=== PATIENT | male | born 1980 | race Caucasian/White ===

== ENCOUNTER 2022-03-22 16:01 | Emergency (ER) | payer OTHER, SELFPAY ==
[2022-03-22] VITALS (7 sets, daily range): BP systolic 131–161; BP diastolic 85–100; PULSE 64–88; RESP 14; TEMP 36.7; O2SAT 98–99
--- NOTE | 2022-03-22 16:19 | XRR_ITS ---
PROCEDURE INFORMATION: Exam: XR Chest Exam date and time: 03/22/2022 4:47 PM Age: 42 years old Clinical indication: Other: Chest pain TECHNIQUE: Imaging protocol: Radiologic exam of the chest. Views: 1 view. COMPARISON: CT Cervical Spine wo* [id number] 05/24/2016 4:17 PM FINDINGS: Lungs: Unremarkable. No consolidation. Pleural spaces: Unremarkable. No pleural effusion. No pneumothorax. Heart/Mediastinum: Unremarkable. No cardiomegaly. Bones/joints: Unremarkable. XR/XR chest 1V portable [id number] IMPRESSION: No acute findings.
--- NOTE | 2022-03-22 16:44 | CTR_ITS ---
PROCEDURE INFORMATION: Exam: CT Head Without Contrast Exam date and time: 03/22/2022 5:52 PM Age: 42 years old Clinical indication: Pain; Dizziness; Headache TECHNIQUE: Imaging protocol: Computed tomography of the head without contrast. Radiation optimization: All CT scans at this facility use at least one of these dose optimization techniques: automated exposure control; mA and/or kV adjustment per patient size (includes targeted exams where dose is matched to clinical indication); or iterative reconstruction. COMPARISON: CT head wo con* [id number] 05/24/2016 4:13 PM RADIATION DOSE METRICS: Total DLP (mGy-cm): 1004.98 FINDINGS: Brain: Normal. No hemorrhage. Unremarkable white matter. No mass effect. Cerebral ventricles: No ventriculomegaly. Paranasal sinuses: Visualized sinuses are unremarkable. No fluid levels. Mastoid air cells: Visualized mastoid air cells are well aerated. Bones/joints: Unremarkable. No acute fracture. Soft tissues: Unremarkable. CT/CT head wo con* [id number] IMPRESSION: No acute intracranial abnormality.
[2022-03-22 16:54] LABS: Basophils # 0.1 10^3/uL (0.0-0.1); Basophils % 0.5 %; Eosinophils # 0.1 10^3/uL (0.0-0.8); Eosinophils % 1.4 %; Hematocrit 50.1 % (42.0-52.0); Hemoglobin 17.7 g/dL (11.7-16.6); Lymphocytes # 2.8 10^3/uL (0.8-4.8); Lymphocytes % 27.8 %; Mean Corpuscular HGB Conc 35.3 g/dL (30.0-36.0); Mean Corpuscular Hemoglobin 30.3 pg (28.0-34.0); Mean Corpuscular Volume 85.8 fl (80-94); Monocytes # 0.5 10^3/uL (0.2-0.9); Monocytes % 5.2 %; Neutrophils # 6.62 10^3/uL (1.8-7.7); Neutrophils % 64.9 %; Nucleated Red Blood Cells % 0 %; Platelet Count 317 10^3/cmm (130-400); Red Blood Count 5.84 10^6/uL (4.1-5.3); Red Cell Distribution Width 13.2 % (12.1-15.1); White Blood Count 10.2 10^3/uL (4.0-10.0)
[2022-03-22] MEDS: sodium chloride 0.9% 1,000 ML 999 ML IV ×2 (17:18→18:38)
[2022-03-22] MEDS: amlodipine 5 mg Tablet PO (17:18)
[2022-03-22] MEDS: acetaminophen 500 mg Tablet 1000 MG PO (17:18)
--- NOTE | 2022-03-22 18:13 | PC.NURSE ---
EKG done at 1809 and shown to ER doctor
--- NOTE | 2022-03-22 18:20 | ECG_ITS ---
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 Measurements Intervals [place] Rate: 64 P: 22 IN: 176 QRS: 28 QRSD: 91 T: 21 QT: 433 QTc: 448 Interpretive Statements SINUS RHYTHM No previous ECG available for comparison Electronically Signed On 03-22-2022 22:31:11 CDT by Bogdan Boyer M.D. [id number]
--- NOTE | 2022-03-22 18:26 | ED_ITS ---
HPI - General Adult General: Chief complaint: Headache Stated complaint: headache, cp Time Seen by Provider: 03/22/22 16:20 History of Present Illness: Patient is a 42-year-old male with a history of recently diagnosed elevated blood pressure who presents emergency room with generalized weakness, headache, and chest pressure. 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 On Saturday and Saturday, patient feels winded and fatigued. On Saturday and Saturday, patient reports chest pressure. In addition, when patient took his blood pressure he noted that they were high. Patient kept a daily log of his blood pressure with systolic blood pressure over 160s. Earlier today, patient went to see his primary care provider was started on lisinopril 10 mg. Shortly after taking lisinopril 10 mg, patient reports that he developed a new severe bifrontal headache and came to the emergency room for evaluation. Patient reports that he does have a family history of cerebral aneurysms and his aunt who in her 40s from cerebral aneurysm. Patient denies bilateral neck pain. Denies any focal neurological deficits with the headache. Patient denies any associate nausea vomiting with a headache. In terms of patient's chest pressure, he has been having for last 2 to 3 days. Patient reports that the chest pressure is constant lasting for 24 hours at a time. Patient denies any vice bonderite operator or squeezing-like sensation. Patient denies any associated nausea/vomiting diaphoresis arm pain back pain or jaw pain with the chest pressure. Patient denies chest pressures pleuritic in nature, denies any lower extremity swelling, prior history of VTE's. Denies any knife stabbing sharp chest pain radiating to the back. Onset:1 week of fatigue, 5 days of uncontrolled BP, 3 days of chest pressure and headache Duration: ongoing Location:home Severity:moderate Associated symptoms: Reports chest pain (+chest pressure) and headache(s); Deny dyspnea, nausea, rash, palpitations or vomiting Review of Systems Const: Reports: fatigue and other (+generalized weakness); Denies: fever(s) or chills Eyes: Denies: change in vision ENMT: Denies: mouth pain Card: Reports: chest pain (+chest pressure); Denies: palpitations Resp: Denies: dyspnea or non-productive cough GI: Denies: abdominal pain, nausea, vomiting or diarrhea : Denies: dysuria Musc: Denies: extremity pain Skin/Breast: Denies: rash or new lesions Neuro: Reports: headache(s); Denies: weakness in extremities Psych: Reports: other (Normal mood) Juan/Lymph: Denies: easy bruising PFSH ED PFSH: Medical History Hypertension Social History Smoking and tobacco status: current every day smoker Alcohol intake: never Substance/Drug Use: never Physical Exam Const: COMMON NORMALS: alert HENMT: COMMON NORMALS: atraumatic HEAD & SCALP: atraumatic MOUTH: moist mucous membranes not abnormal Eye: COMMON NORMALS: EOMs intact bilaterally and conjunctivae normal CONJUNCTIVA: Yes conjunctivae normal Neck/C-Spine: COMMON NORMALS: full ROM and supple OTHER: +no nuchal rigidity Resp: COMMON NORMALS: normal respiratory effort and clear to auscultation bilaterally AUSCULTATION: clear to auscultation bilaterally Cardio: COMMON NORMALS: regular rate RATE: regular rate GI: COMMON NORMALS: Soft to palpation and non-tender PALPATION: Yes Soft to palpation Extremity: COMMON NORMALS: full ROM Neuro: SENSORIUM/ORIENTATION: Yes alert MOTOR EXAM: No Abnormal motor strength present and Other motor observations present (no focal motor deficits) OTHER: Mental status? Awake, alert, and oriented to self, year, month, location, and situation.? Following simple axial and appendicular commands.? Has appropriate fund of knowledge, comprehension, and insight.? Able to recall and understands pertinent aspects of medical history and current treatment status.? ? Language? Speech is fluent without word-finding difficulties.? Intact naming, expression, unit receptionist, and repetition.? ? Cranial nerves? 2,3,4,6: PERRL, EOMI with no nystagmus. 5: Intact sensation to light touch, symmetric? 7: Smile symmetrical, no facial droop.? 8: Hearing grossly intact.? 9,10: Normal palate movement.? 11: Normal strength in trapezius bilaterally 12: Tongue protrudes midline.? ? Motor examination? Normal bulk & tone. Strength as follows (R/L): Delts (5/5), Biceps (5/5), Triceps (5/5), Wrist ext (5/5), hip flexors (5/5), plantarflexors (5/5), dorsiflexors (5/5). Sensation? Light Touch: Grossly intact and equal in upper and lower extremities bilaterally? Romberg: Negative.? Distal joint position sense intact ? Coordination? Xlmqvh-wh-zbsl-finger movements intact without dysmetria or past-pointing.? Rapid fingertaps: preserved amplitude without decriment.? No tremor, myoclonus or truncal ataxia.? ? Gait/stance? Steady, normal narrow base gait with appropriate arm swing and turning.? Tandem gait without hesitation or loss of balance. Psych: COMMON NORMALS: speech normal SPEECH: Yes normal speech MOOD & AFFECT: Yes euthymic mood Course Vital Signs: Vital signs: Vital Signs Temperature 98.0 F 03/22/22 16:17 Pulse Rate 64 03/22/22 19:00 Respiratory Rate 14 03/22/22 16:17 Blood Pressure 133/85 03/22/22 19:00 Pulse Oximetry 99 03/22/22 19:00 [facility] - General Adult Medical Decision Making 42-year-old male with a history of recently diagnosed elevated blood pressure presenting to emergency room for concerns of elevated blood pressure, chest pressure, and headache. Neurologically intact. 2+ pedal pulses bilateral. EKG is nonischemic. Troponin x2 within normal limit. CT head negative for acute finding. CT head negative for aneurysms. Patient blood pressure improved with amlodipine. Patient received headache cocktail with improvement in headache. At the current time, do not suspect of hypertensive emergency. Lab work-up within normal limits. Patient's blood pressure improved. No signs of subarachnoid bleed or intracranial hemorrhage. Do not suspect ACS given negative work-up today for Rx magnesium oxide and tylenol PRN pain Disposition: Discharge. Patient counseled regarding diagnostic impression, treat ment plan. Patient given ED strict return precautions to return for continuation, worsening, or development of new symptoms. Instructed to f/u w/ PCP regarding symptoms today. Patient verbalized understanding. Lab Data : 03/22/22 16:34 03/22/22 17:20 Radiology Impressions Chest X-Ray 03/22/22 16:19 IMPRESSION: No acute findings. Head CT 03/22/22 16:44 IMPRESSION: No acute intracranial abnormality. Head/Neck CTA 03/22/22 18:30 IMPRESSION: No large vessel stenosis or occlusion. IMPRESSION: No stenosis or occlusion. REFERENCES: NASCET CRITERIA. The degree of internal carotid artery stenosis is based on NASCET criteria. Normal is no stenosis. Mild is less than 50% stenosis. Moderate is 50-69% stenosis. Severe is 70% to 99% stenosis. Total occlusion is no detectable patent lumen. Laboratory Results WBC 10.2 10^3/uL (4.0-10.0) H 03/22/22 16:34 RBC 5.84 10^6/uL (4.1-5.3) H 03/22/22 16:34 Hgb 17.7 g/dL (11.7-16.6) H 03/22/22 16:34 Hct 50.1 % (42.0-52.0) 03/22/22 16:34 MCV 85.8 fl (80-94) 03/22/22 16:34 MCH 30.3 pg (28.0-34.0) 03/22/22 16:34 MCHC 35.3 g/dL (30.0-36.0) 03/22/22 16:34 RDW 13.2 % (12.1-15.1) 03/22/22 16:34 Plt Count 317 10^3/cmm (130-400) 03/22/22 16:34 MPV 10.0 fL (7.4-10.4) 03/22/22 16:34 Neut % (Auto) 64.9 % 03/22/22 16:34 Lymph % (Auto) 27.8 % 03/22/22 16:34 Mcminn % (Auto) 5.2 % 03/22/22 16:34 Eos % (Auto) 1.4 % 03/22/22 16:34 Baso % (Auto) 0.5 % 03/22/22 16:34 Neut # (Auto) 6.62 10^3/uL (1.8-7.7) 03/22/22 16:34 Lymph # (Auto) 2.8 10^3/uL (0.8-4.8) 03/22/22 16:34 Mcminn # (Auto) 0.5 10^3/uL (0.2-0.9) 03/22/22 16:34 Eos # (Auto) 0.1 10^3/uL (0.0-0.8) 03/22/22 16:34 Baso # (Auto) 0.1 10^3/uL (0.0-0.1) 03/22/22 16:34 Nucleated RBC % (auto) 0 % 03/22/22 16:34 Nucleated RBCs # 0.0 /100WBC 03/22/22 16:34 Sodium 138 mmol/L (136-145) 03/22/22 17:20 Potassium 4.2 mmol/L (3.5-5.1) 03/22/22 17:20 Chloride 101 mmol/L (98-107) 03/22/22 17:20 Carbon Dioxide 26 mmol/L (22-29) 03/22/22 17:20 Anion Gap 15.2 (5-19) 03/22/22 17:20 BUN 7 mg/dL (6-20) 03/22/22 17:20 Creatinine 0.9 mg/dL (0.7-1.2) 03/22/22 17:20 GFR Calculation 91.7 mL/min (90-130) 03/22/22 17:20 Glucose 92 mg/dL (65-115) 03/22/22 17:20 Calculated Osmolality 284 mOsm/kg (285-295) L 03/22/22 17:20 Calcium 9.3 mg/dL (8.5-10.5) 03/22/22 17:20 Troponin T Baseline 6 ng/L (0-15) 03/22/22 17:20 Troponin T 120 Minute 6.00 ng/L (0-15) 03/22/22 18:43 Delta Troponin T 0 ABS# (0-10) 03/22/22 18:43 Imaging Data Other Imaging: Radiologist's impression: [address] [address] [address] Scan Report Signed Patient: Agusto Russell Unit #: [id number] : 1980 Age/Sex: 42 / M ADM Date: 03/22/22 Loc: ER Room/Bed: Attending Dr: Ordering Provider/Ordering MD: Renuka Acosta MD Date of Service: 03/22/22 Procedure(s): CT angio headneck* [id number] Accession Number(s): [id number] Report Number: [id number] PROCEDURE INFORMATION: Exam: CTA Head With Contrast, Arteriography Exam date and time: 03/22/2022 7:04 PM Age: 42 years old Clinical indication: Pain; Headache; Patient HX: Persistent VARGAS x 4 days. New onset of hypertension. ; Additional info: Sudden sharp headache TECHNIQUE: Imaging protocol: Computed tomographic angiography of the head with contrast. Exam focused on the arteries. 3D rendering (Not supervised by radiologist): MIP and/or 3D reconstructed images were created by the technologist. Radiation optimization: All CT scans at this facility use at least one of these dose optimization techniques: automated exposure control; mA and/or kV adjustment per patient size (includes targeted exams where dose is matched to clinical indication); or iterative reconstruction. Contrast material: OMNI 350; Contrast volume: 165 ml; Contrast route: INTRAVENOUS (IV);? COMPARISON: CT head wo con* [id number] 03/22/2022 5:52 PM RADIATION DOSE METRICS: Total DLP (mGy-cm): 1901.81 FINDINGS: ANTERIOR CIRCULATION: Right internal carotid artery: Unremarkable. Intracranial segment is patent with no significant stenosis. No aneurysm. Right middle cerebral artery: Unremarkable. No occlusion or significant stenosis. No aneurysm.? Right anterior cerebral artery: Unremarkable. No occlusion or significant stenosis. No aneurysm.? Left internal carotid artery: Unremarkable. Intracranial segment is patent with no significant stenosis. No aneurysm. Left middle cerebral artery: Unremarkable. No occlusion or significant stenosis. No aneurysm.? Left anterior cerebral artery: Unremarkable. No occlusion or significant stenosis. No aneurysm.? POSTERIOR CIRCULATION: Right vertebral artery: Unremarkable. No occlusion or significant stenosis. No aneurysm.? Left vertebral artery: Unremarkable. No occlusion or significant stenosis. No aneurysm.? Basilar artery: Unremarkable. No occlusion or significant stenosis. No aneurysm. Right posterior cerebral artery: Unremarkable. No occlusion or significant stenosis. No aneurysm.? Left posterior cerebral artery: Unremarkable. No occlusion or significant stenosis. No aneurysm.? Brain: No definite mass, mass effect, or midline shift. Cerebral ventricles: No ventriculomegaly. Bones/joints: Unremarkable. No acute fracture. Soft tissues: Unremarkable. PROCEDURE INFORMATION: Exam: CTA Neck With Contrast Exam date and time: 03/22/2022 7:04 PM Age: 42 years old Clinical indication: Pain; Headache; Patient HX: Persistent VARGAS x 4 days. New onset of hypertension. ; Additional info: Sudden sharp headache TECHNIQUE: Imaging protocol: Computed tomographic angiography of the neck with contrast. 3D rendering (Not supervised by radiologist): MIP and/or 3D reconstructed images were created by the technologist. Radiation optimization: All CT scans at this facility use at least one of these dose optimization techniques: automated exposure control; mA and/or kV adjustment per patient size (includes targeted exams where dose is matched to clinical indication); or iterative reconstruction. Contrast material: OMNI 350; Contrast volume: 165 ml; Contrast route: INTRAVENOUS (IV);? COMPARISON: CT Cervical Spine wo* [id number] 05/24/2016 4:17 PM RADIATION DOSE METRICS: Total DLP (mGy-cm): 1901.81 FINDINGS: Right common carotid artery: No stenosis. No dissection or occlusion. Right internal carotid artery: No stenosis of the extracranial segment. No dissection or occlusion. Right external carotid artery: No occlusion or stenosis of the origin.? Left common carotid artery: No stenosis. No dissection or occlusion. Left internal carotid artery: No stenosis of the extracranial segment. No dissection or occlusion. Left external carotid artery: No occlusion or stenosis of the origin.? Right vertebral artery: No stenosis. No dissection or occlusion. Left vertebral artery: No stenosis. No dissection or occlusion. Soft tissues: Normal. No significant soft tissue swelling. Bones/joints: No acute fracture. CT/CT angio headneck* [id number] IMPRESSION: No large vessel stenosis or occlusion. ? ? IMPRESSION: No stenosis or occlusion. ? REFERENCES: NASCET CRITERIA. The degree of internal carotid artery stenosis is based on NASCET criteria. Normal is no stenosis. Mild is less than 50% stenosis. Moderate is 50-69% stenosis. Severe is 70% to 99% stenosis. Total occlusion is no detectable patent lumen. ? Dictated By: Jinny Franklin MD Signed By: Jinny Franklin MD Signed Date/Time: 03/22/222027 DD/ 1904 [facility] ([facility]) [address] [place] [address]. [place] [address] CT Scan Report Signed Patient: Agusto Russell Unit #: [id number] : 1980 Age/Sex: 42 / M ADM Date: 03/22/22 Loc: ER Room/Bed: Attending Dr: Ordering Provider/Ordering MD: Renuka Acosta MD Date of Service: 03/22/22 Procedure(s): CT head wo con* [id number] Accession Number(s): [id number] Report Number: [id number] PROCEDURE INFORMATION: Exam: CT Head Without Contrast Exam date and time: 03/22/2022 5:52 PM Age: 42 years old Clinical indication: Pain; Dizziness; Headache TECHNIQUE: Imaging protocol: Computed tomography of the head without contrast. Radiation optimization: All CT scans at this facility use at least one of these dose optimization techniques: automated exposure control; mA and/or kV adjustment per patient size (includes targeted exams where dose is matched to clinical indication); or iterative reconstruction. COMPARISON: CT head wo con* [id number] 05/24/2016 4:13 PM RADIATION DOSE METRICS: Total DLP (mGy-cm): 1004.98 FINDINGS: Brain: Normal. No hemorrhage. Unremarkable white matter. No mass effect. Cerebral ventricles: No ventriculomegaly. Paranasal sinuses: Visualized sinuses are unremarkable. No fluid levels. Mastoid air cells: Visualized mastoid air cells are well aerated. Bones/joints: Unremarkable. No acute fracture. Soft tissues: Unremarkable. CT/CT head wo con* [id number] IMPRESSION: No acute intracranial abnormality. ? Dictated By: Juan Francisco Vasques Signed By: Juan Francisco Vasques Signed Date/Time: 03/22/221806 DD/ 175 Launch?Image [facility] ([facility]) [address] [place] [address]. [place] [address] XRay Report Signed Patient: Agusto Russell Unit #: [id number] : 1980 Age/Sex: 42 / M ADM Date: 03/22/22 Loc: ER Room/Bed: Attending Dr: Ordering Provider/Ordering MD: Renuka Acosta MD Date of Service: 03/22/22 Procedure(s): XR chest 1V portable [id number] Accession Number(s): [id number] Report Number: [id number] PROCEDURE INFORMATION: Exam: XR Chest Exam date and time: 03/22/2022 4:47 PM Age: 42 years old Clinical indication: Other: Chest pain TECHNIQUE: Imaging protocol: Radiologic exam of the chest. Views: 1 view. COMPARISON: CT Cervical Spine wo* [id number] 05/24/2016 4:17 PM FINDINGS: Lungs: Unremarkable. No consolidation. Pleural spaces: Unremarkable. No pleural effusion. No pneumothorax. Heart/Mediastinum: Unremarkable. No cardiomegaly. Bones/joints: Unremarkable. XR/XR chest 1V portable [id number] IMPRESSION: No acute findings. ? Dictated By: Juan Francisco Vasques Signed By: Juan Francisco Vasques Signed Date/Time: 03/22/22 175 DD/ 164 Discharge Plan Discharge Patient Disposition: Home Clinical Impression: Headache, Hypertension, Chest pressure Condition: Stable Prescriptions: New acetaminophen 500 mg tablet 500 mg PO Q6H PRN (Reason: pain) 5 Days Qty: 20 0RF magnesium oxide 400 mg magnesium capsule 400 mg PO DAILY PRN (Reason: headache) 10 Days Qty: 10 0RF Discharge Orders: Discharge ED (Routine); Ordered 03/22/22 Ordered By: Renuka cAosta Discharge Diet: Advance as tolerated Discharge Activity: Increase activity as tolerated Patient Instructions: Chest Pain (ED), Hypertension (ED), General Headache (ED) Activity Restrictions/Additional Instructions: You need to follow-up with your primary care provider for further adjustment of your blood pressure. Your blood pressure puts you at risk for developing strokes and heart attack. Therefore it is very important for you to follow-up with this number to see if the numbers improve gradually. Because blood pressure adjustment is a gradual process, were not able to change it in 1 visit. Therefore please log your blood pressure and follow-up with your primary care provider in the next 72 hours for further adjustment of your blood pressures. Come back to the emergency room if your chest pain worsens, have any fever or chills, worsening shortness of breath, worsening exertional lightheadedness, or any new or concerning complaints. Please come back to the emergency room you have any fever chills, worsening headache, focal weakness, nausea/vomiting, inability to perform daily activity, or any new concerning complaints. 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
--- NOTE | 2022-03-22 18:30 | CTR_ITS ---
PROCEDURE INFORMATION: Exam: CTA Head With Contrast, Arteriography Exam date and time: 03/22/2022 7:04 PM Age: 42 years old Clinical indication: Pain; Headache; Patient HX: Persistent VARGAS x 4 days. New onset of hypertension. ; Additional info: Sudden sharp headache TECHNIQUE: Imaging protocol: Computed tomographic angiography of the head with contrast. Exam focused on the arteries. 3D rendering (Not supervised by radiologist): MIP and/or 3D reconstructed images were created by the technologist. Radiation optimization: All CT scans at this facility use at least one of these dose optimization techniques: automated exposure control; mA and/or kV adjustment per patient size (includes targeted exams where dose is matched to clinical indication); or iterative reconstruction. Contrast material: OMNI 350; Contrast volume: 165 ml; Contrast route: INTRAVENOUS (IV); COMPARISON: CT head wo con* [id number] 03/22/2022 5:52 PM RADIATION DOSE METRICS: Total DLP (mGy-cm): 1901.81 FINDINGS: ANTERIOR CIRCULATION: Right internal carotid artery: Unremarkable. Intracranial segment is patent with no significant stenosis. No aneurysm. Right middle cerebral artery: Unremarkable. No occlusion or significant stenosis. No aneurysm. Right anterior cerebral artery: Unremarkable. No occlusion or significant stenosis. No aneurysm. Left internal carotid artery: Unremarkable. Intracranial segment is patent with no significant stenosis. No aneurysm. Left middle cerebral artery: Unremarkable. No occlusion or significant stenosis. No aneurysm. Left anterior cerebral artery: Unremarkable. No occlusion or significant stenosis. No aneurysm. POSTERIOR CIRCULATION: Right vertebral artery: Unremarkable. No occlusion or significant stenosis. No aneurysm. Left vertebral artery: Unremarkable. No occlusion or significant stenosis. No aneurysm. Basilar artery: Unremarkable. No occlusion or significant stenosis. No aneurysm. Right posterior cerebral artery: Unremarkable. No occlusion or significant stenosis. No aneurysm. Left posterior cerebral artery: Unremarkable. No occlusion or significant stenosis. No aneurysm. Brain: No definite mass, mass effect, or midline shift. Cerebral ventricles: No ventriculomegaly. Bones/joints: Unremarkable. No acute fracture. Soft tissues: Unremarkable. PROCEDURE INFORMATION: Exam: CTA Neck With Contrast Exam date and time: 03/22/2022 7:04 PM Age: 42 years old Clinical indication: Pain; Headache; Patient HX: Persistent VARGAS x 4 days. New onset of hypertension. ; Additional info: Sudden sharp headache TECHNIQUE: Imaging protocol: Computed tomographic angiography of the neck with contrast. 3D rendering (Not supervised by radiologist): MIP and/or 3D reconstructed images were created by the technologist. Radiation optimization: All CT scans at this facility use at least one of these dose optimization techniques: automated exposure control; mA and/or kV adjustment per patient size (includes targeted exams where dose is matched to clinical indication); or iterative reconstruction. Contrast material: OMNI 350; Contrast volume: 165 ml; Contrast route: INTRAVENOUS (IV); COMPARISON: CT Cervical Spine wo* [id number] 05/24/2016 4:17 PM RADIATION DOSE METRICS: Total DLP (mGy-cm): 1901.81 FINDINGS: Right common carotid artery: No stenosis. No dissection or occlusion. Right internal carotid artery: No stenosis of the extracranial segment. No dissection or occlusion. Right external carotid artery: No occlusion or stenosis of the origin. Left common carotid artery: No stenosis. No dissection or occlusion. Left internal carotid artery: No stenosis of the extracranial segment. No dissection or occlusion. Left external carotid artery: No occlusion or stenosis of the origin. Right vertebral artery: No stenosis. No dissection or occlusion. Left vertebral artery: No stenosis. No dissection or occlusion. Soft tissues: Normal. No significant soft tissue swelling. Bones/joints: No acute fracture. CT/CT angio headneck* [id number] IMPRESSION: No large vessel stenosis or occlusion. IMPRESSION: No stenosis or occlusion. REFERENCES: NASCET CRITERIA. The degree of internal carotid artery stenosis is based on NASCET criteria. Normal is no stenosis. Mild is less than 50% stenosis. Moderate is 50-69% stenosis. Severe is 70% to 99% stenosis. Total occlusion is no detectable patent lumen.
[2022-03-22 18:42] LABS: Troponin(5th) Baseline 6 ng/L (0-15)
[2022-03-22 18:46] LABS: Anion Gap 15.2 (5-19); Blood Urea Nitrogen 7 mg/dL (6-20); Calcium 9.3 mg/dL (8.5-10.5); Carbon Dioxide 26 mmol/L (22-29); Chloride 101 mmol/L (98-107); Glomerular Filtration Rate 91.7 mL/min (90-130); Glucose 92 mg/dL (65-115); Osmolality Calculated 284 mOsm/kg (285-295); Potassium 4.2 mmol/L (3.5-5.1); Sodium 138 mmol/L (136-145)
[2022-03-22] MEDS: iohexol 350 mg/mL 100 mL Btl IV ×2 (18:54→19:04)
[2022-03-22 19:35] LABS: Troponin 5 2HR Delta 0 ABS# (0-10)
== END 2022-03-22 20:42 | disposition home or self-care (01) ==
PROVIDERS: Emergency Provider Emergency Medicine
DX: R51.9 Headache, unspecified (principal); I10 Essential (primary) hypertension; R07.89 Other chest pain; F17.210 Nicotine dependence, cigarettes, uncomplicated
CPT/HCPCS: 70450; 70496; 70498; 71045; 80048; 84484; 85025; 93005; 96361; 96374; 99285; J7030; Q9967

== ENCOUNTER 2024-05-19 12:18 | Emergency (ER) | payer SELFPAY ==
[2024-05-19 12:24] VITALS: BP 153/90; PULSE 85; RESP 18; TEMP 36.3; O2SAT 100; BMI 28.7
--- NOTE | 2024-05-19 12:55 | CT_ITS ---
WS: [id number] CT LUMBAR SPINE to include coccyx, noncontrast. HISTORY: trauma TECHNIQUE: Contiguous 2.0 mm axial imaging are performed. Sagittal and coronal reformats are submitte d and reviewed. All CT scans at [facility] use at least one of these dose optimization techni ques: automated exposure control; mA and/or kV adjustment per patient size (includes targeted exams w here dose is matched to clinical indication); or iterative reconstruction. IV contrast: None DLP: 1245.27 mGy.cm COMPARISON: None available. Normal lumbar alignment with no loss of disc space height or vertebral body height. Normal alignment of the coccyx. No obvious fractures or coccygeal segmentation dislocation. L1-2: Normal. L2-3: Normal. L3-4: Mild facet joint arthropathy. No fractures. L4-5: Mild annular disc bulging with mild encroachment upon the ventral thecal sac and subarticular r ecesses. Shallow LEFT foraminal disc protrusion. Mild bilateral subarticular recess and LEFT foramina l stenosis. L5-S1: Mild annular disc bulging with a broad-based central to LEFT paracentral and proximal foramina l disc protrusion with mild contact on the traversing LEFT S1 nerve root and the LEFT L5 exiting nerv e root. Mild LEFT foraminal stenosis. Visualized sacrum and coccyx are normal. No soft tissue hematomas. CT/CT lumbar spine wo con* [id number] IMPRESSION: 1. No lumbar spinal or coccygeal fracture. 2. Moderate size broad-based central to LEFT paracentral and proximal foramina l disc protrusion on the LEFT at L5-S1. Mild disc contact on the LEFT L5 and S1 nerve roots. Mild LEFT foraminal stenosis. 3. Mild bilateral subarticular recess and LEFT foraminal stenosis at L4-5 due to disc disease.
--- NOTE | 2024-05-19 13:10 | W.ED.BACK ---
HPI - Back Pain/Injury General: Chief Complaint: Back Pain/Injury Stated Complaint: fall-tailbone, back, right side pain Time Seen by Provider: 05/19/24 12:36 History of Present Illness: 44-year-old male presents emergency room complaining of low back pain and tailbone pain. Patient was on a ladder he fell off and fell approximately 8 feet and landed on his buttocks he did scrape his back on an adjacent wall as he was falling his significant amount of hematoma from that. He denies loss of consciousness denies any other injury. He was ambulatory immediately after the fall. He is complaining of increasing pain in his low back particularly on the right lower paraspinal region Associated symptoms: Deny abdominal pain, chills, dysuria, fever(s) or urinary urgency Related Data Previous Rx's Medication Instructions Recorded hydrocodone 5 mg-acetaminophen 325 1 tab PO Q6H PRN pain #15 tabs 05/19/24 mg tablet prednisone 20 mg tablet 20 mg PO TID #15 tabs 05/19/24 tizanidine 4 mg tablet 4 mg PO Q6H PRN muscle spasticity 05/19/24 #20 tabs Allergies Allergy/AdvReac Type Severity Reaction Status Date / Time No Known Allergies Allergy Verified 03/22/22 16:20 Review of Systems Const: Denies: fever(s) or chills Card: Denies: chest pain Resp: Denies: dyspnea GI: Denies: abdominal pain : Denies: dysuria, urinary frequency or urinary urgency Musc: Reports: back pain; Denies: neck pain Skin/Breast: Denies: rash PFSH ED PFSH: Medical History Hypertension Social History Smoking and tobacco/nicotine status: current every day tobacco/nicotine user Alcohol intake: never Substance/Drug Use: never Physical Exam Const: GENERAL APPEARANCE: cooperative ORIENTATION/CONSCIOUSNESS: Yes awake, Yes oriented to person, Yes oriented to place and Yes oriented to time HENMT: COMMON NORMALS: normocephalic, atraumatic and hearing grossly normal bilaterally HEAD & SCALP: normocephalic and atraumatic Resp: COMMON NORMALS: normal respiratory effort, No retractions, No use of accessory muscles and clear to auscultation bilaterally AUSCULTATION: clear to auscultation bilaterally Cardio: COMMON NORMALS: regular rate, regular rhythm and No murmurs present (Cardio) RATE: regular rate RHYTHM: regular rhythm GI: COMMON NORMALS: Soft to palpation and No hepatosplenomegaly present AUSCULTATION: Yes normoactive bowel sounds PALPATION: Yes Soft to palpation, No Tenderness to palpation present (GI), No Guarding due to palpation present (GI) and Yes No hepatosplenomegaly present Extremity: COMMON NORMALS: normal to inspection, capillary refill normal, no clubbing, cyanosis or edema, no calf tenderness and no pedal edema Neuro: SENSORIUM/ORIENTATION: Yes oriented to person, Yes oriented to place and Yes oriented to time Skin: COMMON NORMALS: no rashes or lesions noted GENERAL SKIN EXAM: no rashes or lesions noted Course Vital Signs: Vital signs: Vital Signs Temperature 97.4 F L 05/19/24 12:24 Pulse Rate 71 05/19/24 14:54 Respiratory Rate 18 05/19/24 12:24 Blood Pressure 138/91 05/19/24 14:54 Pulse Oximetry 99 05/19/24 14:54 Oxygen Delivery Me thod Room Air 05/19/24 13:33 MDM - Back Pain/Injury Medical Decision Making CT lumbar spine sacrum and coccyx did not show any fracture there is a disc that is mildly bulging does not show significant impingement at this time patient does not have radicular leg pain. He had no other injuries he has a hematoma on his back. But does not actually break the skin. No other injuries to extremities. Discharge patient home with pain medications and have him follow-up with primary care. If he is get leg pain difficulty with bowel or bladder return to the emergency room Labs Radiology Impressions Lumbar Spine CT 05/19/24 12:55 IMPRESSION: 1. No lumbar spinal or coccygeal fracture. 2. Moderate size broad-based central to LEFT paracentral and proximal foraminal disc protrusion on the LEFT at L5-S1. Mild disc contact on the LEFT L5 and S1 nerve roots. Mild LEFT foraminal stenosis. 3. Mild bilateral subarticular recess and LEFT foraminal stenosis at L4-5 due to disc disease. All radiology interpretation(s) finalized by discharge Discharge Plan Discharge Patient Disposition: Home Clinical Impression: Back pain, lumbosacral Condition: Stable Prescriptions: New tizanidine 4 mg tablet 4 mg PO Q6H PRN (Reason: muscle spasticity) Qty: 20 0RF Rx Instructions: do not exceed 3 doses per 24 hrs hydrocodone-acetaminophen 5-325 mg tablet 1 tab PO Q6H PRN (Reason: pain) Qty: 15 0RF prednisone 20 mg tablet 20 mg PO TID Qty: 15 0RF Rx Instructions: 1 p.o. 3 times daily x3 days, 1 p.o. twice daily x2 days, 1 p.o. daily x2 days Discharge Orders: Discharge ED (Routine); Ordered 05/19/24 Ordered By: Anastacio Diego Discharge Diet: Usual diet Discharge Activity: Increase activity as tolerated Patient Instructions: Acute Low Back Pain (ED), Opioid Safety, Pain Management Activity Restrictions/Additional Instructions: Thank you for choosing [facility] for your healthcare needs today. It is very important that you follow up as instructed or that you return to the Emergency Department should you have concerns or if your condition changes or worsens in any way. You were seen in the emergency room after a fall. CT of your back shows disc bulge but no acute fractures. Recommend avoid heavy lifting for the next several days you can advance activity as you are able to use the pain medications active muscle relaxers as needed. Coding Level of Care Code ED Looper Fixer for Simon Crews
[2024-05-19] MEDS: ondansetron 2 mg/ML SDV 2 mL 4 MG IVP (13:30)
[2024-05-19 13:33] VITALS: BP 154/93; PULSE 73; O2SAT 98
[2024-05-19] MEDS: morphine 4 mg/mL SDV 1 mL IVP (13:33)
[2024-05-19 14:54] VITALS: BP 138/91; PULSE 71; O2SAT 99
== END 2024-05-19 14:56 | disposition home or self-care (01) ==
PROVIDERS: Emergency Provider Family Medicine
DX: M54.50 Low back pain, unspecified (principal); I10 Essential (primary) hypertension; Z72.0 Tobacco use
CPT/HCPCS: 72131; 96374; 96375; 99285; J2270; J2405

== ENCOUNTER 2025-08-03 09:13 | Emergency (ER) | payer SELFPAY ==
[2025-08-03 09:16] VITALS: BP 151/88; PULSE 81; RESP 16; TEMP 36.6; O2SAT 98; BMI 28.7
--- NOTE | 2025-08-03 09:17 | CT_ITS ---
WS: [id number] CT LUMBAR SPINE TECHNIQUE: Noncontrast CT of the lumbar spine with coronal and sagittal reformatted images. CLINICAL INFORMATION: back pain COMPARISON: CT 05/19/2024 DLP: 1021.[address] scans at [facility] use at least one of these dose optimization techniques: automated exposure control; mA and/or kV adjustment per patient size (includes targeted exams where dose is matched to clinical indication); or iterative reconstruction. FINDINGS: Normal lumbar alignment. No acute compression. L1-L2: Normal. L2-L3: Mild annular bulging. Spinal canal and foramina are patent. L3-L4: Mild annular bulging. Mild LEFT foraminal narrowing. Spinal canal and RIGHT foramen are patent. Mild facet arthropathy. L4-L5: Mild annular bulging. Slight effacement of the ventral thecal sac. Slight narrowing of the subarticular recess bilaterally. Mild LEFT greater than RIGHT foraminal narrowing. Findings are similar to previous. L5-S1: Shallow central disc bulging. Slight effacement of ventral thecal sac. Mild RIGHT greater than LEFT foraminal narrowing. Mild facet arthropathy. Adrenal glands are normal. CT/CT lumbar spine wo con* [id number] IMPRESSION: 1. No acute fractures. 2. Annular bulging L4-5 with narrowing of the subarticular recess bilaterally. Mild LEFT L4-5 foraminal narrowing. 3. Annular bulging L5-S1 with slight encroachment on the RIGHT greater than LE FT S1 nerve roots. Slight contact of the exiting RIGHT L5 nerve root with mild RIGHT foraminal narrowing. 4. Mild to moderate facet arthropathy L4-L5 and L5-S1. 5. Findings could be further evaluated with MRI on an elective basis.
--- NOTE | 2025-08-03 09:19 | W.ED.BACK ---
HPI - Back Pain/Injury General: Chief Complaint: Back Pain/Injury Stated Complaint: Back Pain Time Seen by Provider: 08/03/25 09:15 Source: patient and EMS Mode of arrival: EMS Limitations: no limitations History of Present Illness: 45-year-old male states he has had history of back issues states she had a fall a year ago and has had low back pain issues since. He states yesterday he picked up a heavy object felt a strain in his left lower back. He states when he woke up this morning his pain was much worse and having difficulty getting out of bed. States pain is sharp in nature rates it a 9 out of 10 in his left lower back does radiate down his buttocks. He denies any bowel or bladder incontinence. Denies any abdominal pain. Denies any fever Related Data Home Medications ?Medication ?Instructions ?Recorded ?Confirmed ibuprofen 200 mg tablet (Advil) 600 mg PO Q6H PRN Fever Or Pain 08/03/25 08/03/25 lisinopril 5 mg tablet 5 mg PO DAILY 08/03/25 08/03/25 Previous Rx's ?Medication ?Instructions ?Recorded tizanidine 4 mg tablet 4 mg PO Q6H PRN muscle spasticity 05/19/24 #20 tabs hydrocodone 5 mg-acetaminophen 325 1 tab PO Q6H PRN pain #14 tabs 08/03/25 mg tablet methocarbamol 750 mg tablet 750 mg PO Q6H PRN spasms #20 tabs 08/03/25 naproxen 500 mg tablet (Naprosyn) 500 mg PO BID PRN pain #20 tabs 08/03/25 Allergies Allergy/AdvReac Type Severity Reaction Status Date / Time No Known Allergies Allergy Verified 03/22/22 16:20 Review of Systems Musc: Reports: back pain [facility] ED PFSH: Medical History Hypertension Social History Smoking and tobacco/nicotine status: current every day tobacco/nicotine user Alcohol intake: never Substance/Drug Use: never Physical Exam Const: COMMON NORMALS: no acute distress, patient oriented x3 and healthy appearing HENMT: COMMON NORMALS: normocephalic and atraumatic HEAD & SCALP: normocephalic and atraumatic Neck/C-Spine: COMMON NORMALS: full ROM and supple Chest: COMMONS NORMALS: normal inspection of the chest Resp: COMMON NORMALS: normal respiratory effort, No retractions, No use of accessory muscles and clear to auscultation bilaterally AUSCULTATION: clear to auscultation bilaterally Cardio: COMMON NORMALS: regular rate, regular rhythm and No murmurs present (Cardio) RATE: regular rate RHYTHM: regular rhythm GI: COMMON NORMALS: Normal to inspection, nondistended, normoactive bowel sounds present, Soft to palpation, non-tender and no masses PALPATION: Yes Soft to palpation Back/Pelvis: OTHER: No midline tenderness does have tenderness of her left lower back no saddle anesthesia Extremity: COMMON NORMALS: normal to inspection and full ROM Neuro: COMMON NORMALS: patient oriented x3, moves all extremities and no focal motor deficits Psych: COMMON NORMALS: mental status grossly normal, Normal thought process present and cooperative THOUGHT PROCESS: Normal thought process present Skin: COMMON NORMALS: no rashes or lesions noted and no wounds GENERAL SKIN EXAM: no rashes or lesions noted Course Vital Signs: Vital signs: Vital Signs Temperature 97.8 F 08/03/25 09:16 Pulse Rate 81 08/03/25 09:16 Respiratory Rate 16 08/03/25 09:16 Blood Pressure 151/88 08/03/25 09:16 Pulse Oximetry 98 08/03/25 09:16 Oxygen Delivery Me thod Room Air 08/03/25 09:16 MDM - Back Pain/Injury Medical Decision Making Patient presents here with low back pain now left side has been severe in nature. Differential includes epidural abscess, lumbar strain, cord compression. Patient did have difficulty walking CT MRI was performed. I did call Dr. Urbano went over the MRI results no signs of cord compression patient was able to finally ambulate here but is quite painful he has no saddle anesthesia he had no signs of epidural abscess on the MRI. This did happen after lifting is likely lumbar strain we will place him on pain meds hydrocodone along with Robaxin and Naprosyn. Patient is to follow-up with Dr. Urbano. Medical Records I reviewed the patient's medical records. Labs Radiology Impressions Lumbar Spine CT 08/03/25 09:17 IMPRESSION: 1. No acute fractures. 2. Annular bulging L4-5 with narrowing of the subarticular recess bilaterally. Mild LEFT L4-5 foraminal narrowing. 3. Annular bulging L5-S1 with slight encroachment on the RIGHT greater than LEFT S1 nerve roots. Slight contact of the exiting RIGHT L5 nerve root with mild RIGHT foraminal narrowing. 4. Mild to moderate facet arthropathy L4-L5 and L5-S1. 5. Findings could be further evaluated with MRI on an elective basis. Lumbar Spine MRI 08/03/25 10:44 IMPRESSION: 1. No acute lumbar spine fracture. 2. Moderate bilateral foraminal stenosis at L5-S1 with disc osteophyte contact most significant on the exiting L5 nerve roots. 3. Shallow central disc protrusion at L5-S1. 4. Broad-based central disc protrusion at L4-5. Mild disc contact on the traversing L5 nerve roots and mild bilateral foraminal stenosis, LEFT greater than RIGHT. 5. Mild subarticular recess and foraminal stenosis at L3-4. All radiology interpretation(s) finalized by discharge Discharge Plan Discharge Patient Disposition: Home Clinical Impression: Low back pain Condition: Stable Prescriptions: New hydrocodone-acetaminophen 5-325 mg tablet 1 tab PO Q6H PRN (Reason: pain) Qty: 14 0RF methocarbamol 750 mg tablet 750 mg PO Q6H PRN (Reason: spasms) Qty: 20 0RF naproxen [Naprosyn] 500 mg tablet 500 mg PO BID PRN (Reason: pain) Qty: 20 0RF No Action ibuprofen [Advil] 200 mg Tablet 600 mg PO Q6H PRN (Reason: Fever Or Pain) lisinopril 5 mg tablet 5 mg PO DAILY tizanidine 4 mg tablet 4 mg PO Q6H PRN (Reason: muscle spasticity) Qty: 20 0RF Rx Instructions: do not exceed 3 doses per 24 hrs Discharge Orders: Discharge ED (Routine); Ordered 08/03/25 Ordered By: Leni Menjivar Referrals: Tee Urbano DO [Physician, Orthopedics] - 4-7 days Discharge Diet: Advance as tolerated Discharge Activity: Resume usual activity Patient Instructions: Acute Low Back Pain (ED), Opioid Safety Print Language: Tristanian Coding Level of Care Code ED Eating Disorder Specialist for Simon Crews
[2025-08-03] MEDS: HYDROmorphone 0.5 MG/0.5 ML INJ 1 MG IVP (10:38)
--- NOTE | 2025-08-03 10:44 | MR_ITS ---
WS: [id number] MRI LUMBAR SPINE NONCONTRAST HISTORY: fall COMPARISON: CT lumbar spine 08/03/2025 TECHNIQUE: Sagittal and axial multisequence imaging is submitted. Normal lumbar alignment with no compression fractures or marrow edema. Mild disc desiccation at L4-5 and L5-S1. Conus terminates normally at L1-2 disc level. L1-L2: Normal. L2-L3: Mild disc bulging extending asymmetrically to the RIGHT. There is mild contact on the RIGHT subarticular recess. No stenosis. L3-L4: Mild annular disc bulging with ligamentum flavum and facet arthritis. Small amount of fluid in the facet joints. Very slight subarticular recess and foraminal narrowing. Small amount of fluid in the facet joints. L4-L5: Mild annular disc bulging with a broad-based central disc protrusion. There is mild disc contact on the traversing L5 nerve roots. Small amount of fluid in the facet joints. Mild bilateral foraminal stenosis, LEFT greater than RIGHT. L5-S1: Mild disc bulging with a very shallow central disc protrusion. Mild osteophytic ridging. Bilateral facet arthritis. Moderate bilateral foraminal stenosis due to disc and osteophyte and facet disease. There is contact most significant on the exiting L5 nerve roots. MR/MR lumbar spine wo con* [id number] IMPRESSION: 1. No acute lumbar spine fracture. 2. Moderate bilateral foraminal stenosis at L5-S1 with disc osteophyte contact most significant on the exiting L5 nerve roots. 3. Shallow central disc protrusion at L5-S1. 4. Broad-based central disc protrusion at L4-5. Mild disc contact on the trave rsing L5 nerve roots and mild bilateral foraminal stenosis, LEFT greater than R IGHT. 5. Mild subarticular recess and foraminal stenosis at L3-4.
[2025-08-03] MEDS: HYDROcodone-acetaminophen 10-325 mg Tablet 1 TAB PO (13:42)
--- NOTE | 2025-08-04 07:49 | DCPLANNER ---
Message sent to Ortho/Spine for referral-Patient presents here with low back pain now left side has been severe in nature. Differential includes epidural abscess, lumbar strain, cord compression. Patient did have difficulty walking CT MRI was performed. I did call Dr. Urbano went over the MRI results no signs of cord compression patient was able to finally ambulate here but is quite painful he has no saddle anesthesia he had no signs of epidural abscess on the MRI. This did happen after lifting is likely lumbar strain we will place him on pain meds hydrocodone along with Robaxin and Naprosyn. Patient is to follow-up with Dr. Urbano.
== END 2025-08-03 13:51 | disposition home or self-care (01) ==
PROVIDERS: Emergency Provider Emergency Medicine
DX: M54.50 Low back pain, unspecified (principal); I10 Essential (primary) hypertension; Z72.0 Tobacco use
CPT/HCPCS: 72131; 72148; 96374; 96375; 99285; J1100; J1171; J9999

== ENCOUNTER → 2025-08-17 15:41 | Outpatient (BNVA) | payer SELFPAY | PROVIDERS: Visit Provider Orthopaedic Surgery | DX: M54.9 Dorsalgia, unspecified (principal) | CPT/HCPCS: 72110 ==